=== PATIENT | male | born 1980 | race Caucasian/White ===

== ENCOUNTER 2020-03-13 20:15 | Inpatient (IN) | payer OTHER ==
[~2020-03-13] VITALS: Ht 175.3 cm; Wt 90.7 kg
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
--- NOTE | 2020-03-13 20:37 | NUR ---
URINE COLLECTED AND SENT TO LAB.
--- NOTE | 2020-03-13 21:02 | NUR ---
ROCURONIUM 100 AND ATOMIDATE 30 ADMINISTERED TO PATIENT.
[2020-03-13] MEDS ORDERED: PROPOFOL 100 ML ONE (21:06)
[2020-03-13 21:10] LABS: APPEARANCE,URINE CLEAR (CLEAR); BILIRUBIN,URINE SMALL (NEGATIVE); BLOOD, URINE TRACE-INTA Ery/uL (NEGATIVE); COLOR,URINE YELLOW (YELLOW); KETONES,URINE 15 (NEGATIVE); LEUKOCYTE ESTERASE ,URINE NEGATIVE (NEGATIVE); NITRITE, URINE NEGATIVE (NEGATIVE); PROTEIN,URINE TRACE mg/dl (NEGATIVE); UGLUCOSE NEGATIVE (NEGATIVE); UROBILINOGEN,URINE 0.2 EU/dL (0.2)
--- NOTE | 2020-03-13 21:19 | NUR ---
MD ELIAS AT BEDSIDE FOR CENTRAL LINE.
--- NOTE | 2020-03-13 21:20 | NUR ---
PT INTUBATED BY DR ELIAS AIRWAY PROTECTION WITH ETT 7.5@25CM. MIST IN THE TUBE, BILATERAL CHEST RISE, AND BILATERAL BREATH SOUNDS. PT PLACED ON VENT SETTINGS AC 16 500 40% +5. PT ALTERED, RESPONSIVE TO PAIN. ETT SECURE. SUCTIONED A SMALL AMOUNT OT THICK RED TINGED SECRETIONS. HR ELEVATED 180 AT THIS TIME. PT SUPINE AT THIS TIME. Addendum: 03/13/20 at 4 by SARAN MONTOYA RT Amended: Links added.
[2020-03-13 21:22] LABS: WBC,URINE 0-2 /HPF (0-3)
[2020-03-13 21:23] LABS: BACTERIA,URINE Few /HPF (None Seen); SQUAMOUS EPITHELIAL CELL,UR Few /HPF (None Seen)
--- NOTE | 2020-03-13 21:32 | NUR ---
CENTRAL LINE PROCEDURE FINISHED.
--- NOTE | 2020-03-13 21:33 | NUR ---
RT AT BEDSIDE FOR ABG BLOOD DRAW
--- NOTE | 2020-03-13 21:47 | NUR ---
PATIENT TAKEN TO CT.
--- NOTE | 2020-03-13 21:56 | NUR ---
PATIENT UNDERGOING XRAY PROCEDURE
--- NOTE | 2020-03-13 21:59 | NUR ---
PATIENT RETURNED FROM CT.
--- NOTE | 2020-03-13 22:21 | NUR ---
BED ASSIGNMENT 252
--- NOTE | 2020-03-13 22:25 | NUR ---
16 FR NG TUBE INSERTED WITH 61CM
--- NOTE | 2020-03-13 22:29 | NUR ---
COVID-19 SWAB COLLECTED AND SENT TO THE LAB.
[2020-03-13] MEDS ORDERED: FENTANYL CITRAT IV 2,500 MCG in IV NS 0.9% 200 ML IV PRN (22:30)
[2020-03-13] MEDS ORDERED: PROPOFOL 100 ML IV PRN (22:30)
[2020-03-13] MEDS ORDERED: PIPERACILLIN /TAZOBACTAM 3.375 G in IV D5W 50 ML IV STA (22:49)
[2020-03-13] MEDS ORDERED: PIPERACILLIN /TAZOBACTAM 3.375 G VIAL IV ONE (22:59)
[2020-03-13 23:07] LABS: BASOPHILS % (AUTO) 0.5 % (0.0-2.0); EOSINOPHILS % (AUTO) 0.3 % (0.0-6.0); HEMATOCRIT 51 % (39-51); HEMOGLOBIN 16.5 g/dL (13.5-17.5); LYMPHOCYTES % (AUTO) 31.4 % (20.0-44.0); MEAN CORPUSCULAR HGB CONC 32 g/dl (31.0-36.0); MEAN CORPUSCULAR VOLUME 87 fL (80-96); MONOCYTES # (AUTO) 0.5 /CMM (0.1-1.30); MONOCYTES % (AUTO) 7.7 % (2.0-12.0); NEUTROPHILS # (AUTO) 3.9 /CMM (1.8-8.9); NEUTROPHILS % (AUTO) 60.1 % (43.0-81.0); PLATELET COUNT (AUTO) 110 /CMM (150-450); RED BLOOD CELL COUNT(AUTO) 5.83 MIL/uL (4.5-6.0); WHITE BLOOD COUNT (AUTO) 6.5 K/uL (4.3-11.0)
--- NOTE | 2020-03-13 23:19 | NUR ---
REPORT GIVEN TO CRISTINA MCGRATH FOR LEONID.
[2020-03-13 23:21] LABS: CREATININE 3.4 mg/dL (0.6-1.3); POTASSIUM 4.3 mmol/L (3.5-5.1)
[2020-03-13 23:22] LABS: ALANINE AMINOTRANSFERASE 371 U/L (12-78); ALBUMIN 4.2 g/dL (3.4-5.0); ALKALINE PHOSPHATASE 58 U/L (46-116); ASPARTATE AMINOTRANSFERASE 1206 U/L (15-37); BILIRUBIN,DIRECT 0.2 mg/dL (0.0-0.2); BILIRUBIN,TOTAL 0.7 mg/dL (0.2-1.0)
[2020-03-13 23:30] LABS: MAGNESIUM 3.8 mg/dL (1.8-2.4)
[2020-03-14] MEDS ORDERED: HEPARIN INFUSION/D5W 500 ML IV PRN
[2020-03-14] MEDS ORDERED: PROPOFOL 100 ML IV PRN
[2020-03-14] MEDS ORDERED: ACETAMINOPHEN 325 MG TABLET PO PRN
[2020-03-14] MEDS ORDERED: ZOLPIDEM TARTRATE 5 MG TABLET PO PRN
[2020-03-14] MEDS ORDERED: MAGNESIUM HYDROXIDE 30 ML UDC PO PRN
[2020-03-14] MEDS ORDERED: Z GUARD REMEDY 2 OZ OINT TP PRN
[2020-03-14] MEDS ORDERED: ONDANSETRON HCL/PF 4 MG/2 ML VIAL IVP PRN
[2020-03-14] MEDS ORDERED: ENOXAPARIN SODIUM 100 MG/ML DISP.SYRIN SQ SCH
[2020-03-14] MEDS ORDERED: ENOXAPARIN SODIUM 40 MG/0.4 ML DISP.SYRIN SQ ONE (00:12)
[2020-03-14] MEDS ORDERED: ENOXAPARIN SODIUM 60 MG/0.6 ML DISP.SYRIN SQ ONE (00:12)
[2020-03-14] MEDS ORDERED: TDAP [DIPH/PERTUSSIS/TET] 0.5 ML VIAL IM ONE ×2 (00:12→00:30)
--- NOTE | 2020-03-14 00:30 | NUR ---
PATIENT IS CLEANED AND GIVEN A BATH WITH NEW SHEETS AND NEW GOWN.
--- NOTE | 2020-03-14 00:30 | NUR ---
Received patient in no acute distress in bed. patient is sedated on propofol at 10 mcg from ER. Patient transferred to bed and tolerated well. Patient is on mechanical vent via ETT. Mechanical vent setting are AC 16, TV 500, FIO2 40%, PEEP 5. patient placed on monitor with sinus tachy at 120's. Patient has NG tube that is clean dry intact and patent with free water flush. Patient has singer catheter that is clean dry intact and patent with small belen color urine in collection chamber. Patient has right neck IJ central catheter that is clean dry intact and patent with saline flush. Patient has left hand 20g that is clean dry intact and patent with saline flush. bed in low lock position with rials up x 2. call light within reach and all safety measures ensured and carried out. will continue to monitor.
--- NOTE | 2020-03-14 00:46 | NUR ---
PATIENT TAKEN UP TO ICU ROOM.
[2020-03-14 01:00] VITALS: BP 134/72
[2020-03-14] MEDS ORDERED: IV NS 0.9% 1,000 ML IV PRN (02:00)
[2020-03-14] MEDS ORDERED: VANCOMYCIN 2 GM in IV NS 0.9% 500 ML IV ONE (02:00)
[2020-03-14] MEDS ORDERED: GELATIN SPONGE,ABSORBABLE 1 SPONGE SPONGE TP ONE ×2 (02:43→02:44)
[2020-03-14] MEDS ORDERED: VANCOMYCIN 1 GM VIAL ONE (03:30)
[2020-03-14 04:00] VITALS: BP 134/72
[2020-03-14 05:47] LABS: BASOPHILS % (AUTO) 0.3 % (0.0-2.0); EOSINOPHILS % (AUTO) 0.2 % (0.0-6.0); HEMATOCRIT 50 % (39-51); HEMOGLOBIN 16.1 g/dL (13.5-17.5); LYMPHOCYTES # (AUTO) 0.6 /CMM (0.8-4.8); LYMPHOCYTES % (AUTO) 6.8 % (20.0-44.0); MEAN CORPUSCULAR HGB CONC 32 g/dl (31.0-36.0); MEAN CORPUSCULAR VOLUME 87 fL (80-96); MONOCYTES # (AUTO) 0.7 /CMM (0.1-1.30); MONOCYTES % (AUTO) 8.7 % (2.0-12.0); PLATELET COUNT (AUTO) 57 /CMM (150-450); RED BLOOD CELL COUNT(AUTO) 5.73 MIL/uL (4.5-6.0); WHITE BLOOD COUNT (AUTO) 8.3 K/uL (4.3-11.0)
[2020-03-14 06:02] LABS: CALCIUM, SERUM 7.9 mg/dL (8.5-10.1); CREATININE 5.9 mg/dL (0.6-1.3); MAGNESIUM 3.6 mg/dL (1.8-2.4); PHOSPHORUS 1.6 mg/dL (2.5-4.9); POTASSIUM 4.3 mmol/L (3.5-5.1)
--- NOTE | 2020-03-14 06:05 | NUR ---
Patient was tachycardic at 120's and sergio down to 60's in which patient became asystole. Nora lopez initiated and high quality CPR performed. 0612- patient continues to have asystole following CPR efforts and Dr. Zaragoza called time of at 0612. See Code blue sheet for more detailed information.
[2020-03-14 06:10] LABS: LYMPHOCYTES % (MANUAL) 12 % (16-48); NEUTROPHILS % (MANUAL) 77 (42-76)
[2020-03-14 06:11] LABS: MONOCYTES % (MANUAL) 4 % (0-11.0)
[2020-03-14] MEDS ORDERED: FEE PK DOSING 1 MIN EA MC ONE (07:10)
[2020-03-14] MEDS ORDERED: EPINEPHRINE (1:10,000) SYRINGE 1 MG/10 ML DISP.SYRIN IVP ONE (08:13)
[2020-03-14] MEDS ORDERED: ETOMIDATE 2 MG/ML VIAL ONE (08:56)
[2020-03-14] MEDS ORDERED: ROCURONIUM BROMIDE 50 MG/5 ML ONE (08:56)
[2020-03-14] MEDS ORDERED: EPINEPHRINE (1:10,000) SYRINGE 1 MG/10 ML DISP.SYRIN ONE (09:30)
[2020-03-14] MEDS ORDERED: DEXTROSE 50%-WATER 50 ML DISP.SYRIN ONE (09:30)
--- NOTE | 2020-03-14 10:30 | NUR ---
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 BODY RELEASED TO GO TO THE [facility] [place]. BODY SENT TO [facility] AFTER BEING PHOTOGRAPHED BY [employer]. TOE TAG AND PT ARMBAND IN PLACE. [employer] OFFICER SPOKE WITH SISTER ON THE PHONE. BELONGINGS BAGGED AND SENT TO [facility] WITH BODY. COPY OF CHART PREPARED FOR TENNIS PLAYER. SPOKE WITH LAB TO SECURE BLOOD SAMPLES FOR TENNIS PLAYER TO RETRIEVE, REQUESTED BY [employer].
[2020-03-16] MEDS ORDERED: VANCOMYCIN 1 GM in IV D5W 250 ML IV SCH (03:00)
== END 2020-03-14 11:17 | disposition expired | DRG 917 ==
LOC: ER 20:15 → ICU 22:11
PROVIDERS: ADMIT Nurse Practitioner Acute Care; ATTEND Student in an Organized Health Care Education/Training Program
PROC: B543ZZA Ultrasonography of Right Jugular Veins, Guidance (ICD-10-PCS; principal; 2020-03-13)
PROC: 05HM33Z Insertion of Infusion Device into Right Internal Jugular Vein, Percutaneous Approach (ICD-10-PCS; principal; 2020-03-13)
PROC: 0BH17EZ Insertion of Endotracheal Airway into Trachea, Via Natural or Artificial Opening (ICD-10-PCS; principal; 2020-03-13)
PROC: 5A1945Z Respiratory Ventilation, 24-96 Consecutive Hours (ICD-10-PCS; principal; 2020-03-13)
DX: T43.621A Poisoning by amphetamines, accidental (unintentional), initial encounter (principal); I21.4 Non-ST elevation (NSTEMI) myocardial infarction; A41.9 Sepsis, unspecified organism; J69.0 Pneumonitis due to inhalation of food and vomit; J96.01 Acute respiratory failure with hypoxia; G92 Toxic encephalopathy; N17.9 Acute kidney failure, unspecified; E87.2 Acidosis; D68.59 Other primary thrombophilia; M62.82 Rhabdomyolysis; Y92.009 Unspecified place in unspecified non-institutional (private) residence as the place of occurrence of the external cause; E86.0 Dehydration; N18.9 Chronic kidney disease, unspecified; S61.411A Laceration without foreign body of right hand, initial encounter; S41.111A Laceration without foreign body of right upper arm, initial encounter; W26.0XXA Contact with knife, initial encounter; F15.10 Other stimulant abuse, uncomplicated; R19.7 Diarrhea, unspecified
CPT/HCPCS: 36415; 70450-TC; 71045-TC; 72125-TC; 73090-TC; 80048-TC; 80061-TC; 80076-TC; 80305; 81000-TC; 82550-TC; 82553; 82962-TC; 83605-TC; 83735-TC; 84100-TC; 84484-TC; 85025-TC; 85730-TC; 86704; 86709-TC; 87040-TC; 87081-TC; 87086-TC; 87806; 90715; 93307-TC; 94002-TC; 94003-TC; 99082-TC; G0378; J0171; J1650; J2543; J3370; J3490; J7030; J7040; J7060